=== PATIENT | male | born 1950 ===

== ENCOUNTER 2023-04-10 08:46 | Outpatient (CLI) | payer OTHER | END 2023-04-10 08:55 | disposition home or self-care (01) | LOC: MRI 08:46 | PROVIDERS: ATTEND Internal Medicine Gastroenterology | DX: R10.13 Epigastric pain (principal); R63.4 Abnormal weight loss; R93.3 Abnormal findings on diagnostic imaging of other parts of digestive tract | CPT/HCPCS: 74183; Q9965; 74182 ==